=== PATIENT | female | born 1990 | race Caucasian/White ===

== ENCOUNTER 2018-05-09 02:38 | Emergency (ER) | payer OTHER ==
[2018-05-09 02:44] VITALS: BP 112/70
--- NOTE | 2018-05-09 06:02 | ER Document Report ---
HPI - HPI Patient complains to provider of: toothache Pain Level: 5 Context: Patient is a 28-year-old female presenting to the emergency department complaining of left upper jaw pain. Patient states she thinks it is her tooth. Patient states she is in the and goes to dentist regularly. States last time she was at the dentist was in December. Patient denies any nausea, vomiting, diarrhea, fever, swelling to her face or gums. Past medical history: None Meds: None Allergies: Vicodin, morphine Surgeries: Tonsillectomy Patient denies smoking, admits to occasional EtOH use, denies illicit drug use. - REPRODUCTIVE LMP: 04-30-18 Past Medical History - General Information source: Patient - Social History Smoking Status: Never Smoker Lives with: Family Family History: Reviewed & Not Pertinent Patient has suicidal ideation: No Patient has homicidal ideation: No Renal/ Medical History: Denies: Hx Peritoneal Dialysis Vertical Provider Document - CONSTITUTIONAL Agree With Documented VS: Yes Notes: GENERAL: Alert, interacts well. No acute distress. HEAD: Normocephalic, atraumatic. EYES: Pupils equal, round, and reactive to light. Extraocular movements intact. ENT: Oral mucosa moist, tongue midline. Obvious dental carry tooth 16. No fracture visualized. No surrounding erythema fluctuance or indurated areas in gumline. NECK: Full range of motion. Supple. Trachea midline. LUNGS: Clear to auscultation bilaterally, no wheezes, rales, or rhonchi. No respiratory distress. HEART: Regular rate and rhythm. No murmur ABDOMEN: Soft, non-tender. Non-distended. Bowel sounds present in all 4 quadrants. EXTREMITIES: Moves all 4 extremities spontaneously. No edema, normal radial and dorsalis pedis pulses bilaterally. No cyanosis. BACK: no cervical, thoracic, lumbar midline tenderness. No saddle anesthesia, normal distal neurovascular exam. NEUROLOGICAL: Alert and oriented x3. Normal speech. PSYCH: Normal affect, normal mood. SKIN: Warm, dry, normal turgor. No rashes or lesions noted. - INFECTION CONTROL TRAVEL OUTSIDE OF THE [place] IN LAST 30 DAYS: No Course - Re-evaluation Re-evalutation: 05/09/18 06:00 Discussed need for antibiotics with patient. Also discussed need to follow-up with a dentist. [place] Discussed [id number] Tylenol Motrin for pain. - Vital Signs Vital signs: Temp Pulse Resp BP Pulse Ox 97.4 F 68 18 112/70 99 05/09/18 02:43 05/09/18 02:43 05/09/18 02:43 05/09/18 02:43 05/09/18 02:43 Discharge - Discharge Clinical Impression: Toothache, Dental caries Condition: Stable Disposition: HOME, SELF-CARE Instructions: [facility], Penicillin V K ([facility]) Additional Instructions: As we discussed you need to take the antibiotics as prescribed. That you need to follow-up with your dentist for further care. Return to the emergency room for any other concerning symptoms. Should [place] dental clinic attached in this paperwork. [address], [address] Prescriptions: Penicillin V Potassium [Penicillin Vk 500 mg Tablet] 500 mg PO BID #20 tablet Referrals: ANGELA HOLDEN DO [Primary Care Provider] - Follow up as needed
== END 2018-05-09 06:08 | disposition home or self-care (01) ==
LOC: ER 02:38
DX: K02.9 Dental caries, unspecified (principal); K08.89 Other specified disorders of teeth and supporting structures; Z88.5 Allergy status to narcotic agent
CPT/HCPCS: 99283